=== PATIENT | male | born 1960 ===

== ENCOUNTER 2018-08-01 12:12 | Observation (INO) | payer MEDICAID ==
[2018-08-01 12:19] VITALS: BMI 18.7
--- NOTE | 2018-08-01 13:22 | ED PDOC ---
HPI: Hypertension/Hypotension Time Seen by Provider: 08/01/18 12:51 Chief Complaint (Nursing): High Blood Pressure Chief Complaint (Provider): High Blood Pressure History Per: Patient History/Exam Limitations: no limitations Onset/Duration Of Symptoms: Other (Today) Additional Complaint(s): 57 years old male presents for evaluation of high blood pressure. Patient was recently diagnosed with hypertension but did not start on medication yet. He states he had high blood pressure medication at home that he took because he had a feeling of chest tightness and right sided facial numbness for about 20 minutes. Blood pressure taken at home was 206/115. On arrival to ED, patient had blood pressure initially of 206/115 and currently 185/97. Patient reports symptoms started after he heard that his godfather was hospitalized for stroke. He denies weakness or numbness of extremity or slurred speech, PMD: Jose Manuel Past Medical History Reviewed: Historical Data, Nursing Documentation, Vital Signs Vital Signs: Last Vital Signs Temp 98.5 F 08/01/18 12:18 Pulse 98 H 08/01/18 12:31 Resp 16 08/01/18 12:31 BP 185/97 H 08/01/18 12:31 Pulse Ox 97 08/01/18 12:31 Primary Care Provider: CHELSIE TUTTLE - Medical History PMH: HTN - Surgical History Surgical History: No Surg Hx - Family History Family History: States: Unknown Family Hx - Social History Current smoker - smoking cessation education provided: No Alcohol: None Drugs: Denies - Home Medications Home Medications: Ambulatory Orders Medication Instructions Recorded Aspirin [Aspirin Chewable] 81 mg PO DAILY #30 chew 08/02/18 Atorvastatin [Lipitor] 10 mg PO DIN #30 tab 08/02/18 Ramipril [Altace] 5 mg PO DAILY #30 cap 08/02/18 amLODIPine [Norvasc] 5 mg PO Q12 #60 tab 08/02/18 - Allergies Allergies/Adverse Reactions: Allergies Allergy/AdvReac Type Severity Reaction Status Date / Time No Known Allergies Allergy Verified 08/01/18 12:30 Review of Systems ROS Statement: Except As Marked, All Systems Reviewed And Found Negative Cardiovascular: Positive for: Chest Pain Neurological: Positive for: Numbness (Right sided facial. No numbness to extremities). Negative for: Weakness (of extremities), Other (Slurred speech) Physical Exam - Reviewed Nursing Documentation Reviewed: Yes Vital Signs Reviewed: Yes - Physical Exam Appears: Positive for: Well, No Acute Distress Head Exam: Positive for: ATRAUMATIC, NORMOCEPHALIC Skin: Positive for: Normal Color, Warm, Dry Eye Exam: Positive for: Normal appearance, EOMI, PERRL ENT: Positive for: Normal ENT Inspection Neck: Positive for: Normal, Painless ROM, Supple Cardiovascular/Chest: Positive for: Regular Rate, Rhythm. Negative for: Murmur Respiratory: Positive for: Normal Breath Sounds. Negative for: Wheezing Gastrointestinal/Abdominal: Positive for: Normal Exam, Soft. Negative for: Tenderness Back: Positive for: Normal Inspection. Negative for: L CVA Tenderness, R CVA Tenderness Extremity: Positive for: Normal ROM. Negative for: Pedal Edema, Swelling Neurological/Psych: Positive for: Awake, Alert, Oriented (x3) - Laboratory Results Result Diagrams: 08/02/18 04:50 08/02/18 04:50 - ECG O2 Sat by Pulse Oximetry: 97 (RA) Pulse Ox Interpretation: Normal Medical Decision Making Medical Decision Making: Time: 1303 MDM: Workup for possible TIA, exacerbation of high blood pressure --Episode of chest tightness, cardiac workup --CT brain --Reevaluate patient 1410 CXR FINDINGS: LUNGS: No active pulmonary disease. Lung volumes lower limits of normal. PLEURA: No significant pleural effusion identified, no pneumothorax apparent. Minimal biapical pleural thickening suspect CARDIOVASCULAR: No aortic atherosclerotic calcification present. Normal cardiac size. No pulmonary vascular congestion. OSSEOUS STRUCTURES: Mild right acromioclavicular joint arthrosis. VISUALIZED UPPER ABDOMEN: Normal. OTHER FINDINGS: None. IMPRESSION: No pulmonary infiltrate. Minimal biapical pleural thickening. 1502 CT Head FINDINGS: HEMORRHAGE: No intracranial hemorrhage. BRAIN: Normal oropeza-white matter differentiation and density are appreciated throughout the cerebrum and cerebellum with the brainstem appearing unremarkable as well. There is no mass effect. There is no suspicious extra-axial fluid collection and the midline brain anatomy appears diffusely unremarkable. VENTRICLES: Unremarkable. No hydrocephalus. CALVARIUM: Unremarkable. PARANASAL SINUSES: Unremarkable as visualized. No significant inflammatory changes. MASTOID AIR CELLS: Unremarkable as visualized. No inflammatory changes. OTHER FINDINGS: None. IMPRESSION: Unremarkable unenhanced head CT. Pt admitted under Dr. Anguiano/Ken Barger for further cardiac workup and observation. Consult has been placed for cardiology. Scribe Attestation: Documented by Stephani Hernandez, acting as a scribe for Twila Elizondo MD. Provider Scribe Attestation: All medical record entries made by the Scribe were at my direction and personally dictated by me. I have reviewed the chart and agree that the record accurately reflects my personal performance of the history, physical exam, medical decision making, and the department course for this patient. I have also personally directed, reviewed, and agree with the discharge instructions and disposition. Disposition - Clinical Impression Clinical Impression: Hypertension - Disposition Disposition Time: 14:33 Condition: GOOD
--- NOTE | 2018-08-01 14:14 | RAD ---
Date of service: 08/01/2018 HISTORY: possible admission COMPARISON: No prior. TECHNIQUE: 1 view obtained. FINDINGS: LUNGS: No active pulmonary disease. Lung volumes lower limits of normal. PLEURA: No significant pleural effusion identified, no pneumothorax apparent. Minimal biapical pleural thickening suspect CARDIOVASCULAR: No aortic atherosclerotic calcification present. Normal cardiac size. No pulmonary vascular congestion. OSSEOUS STRUCTURES: Mild right acromioclavicular joint arthrosis. VISUALIZED UPPER ABDOMEN: Normal. OTHER FINDINGS: None. IMPRESSION: No pulmonary infiltrate. Minimal biapical pleural thickening.
[2018-08-01 14:24] LABS: BASO # 0.1 K/uL (0.0-0.2); BASO % 0.9 % (0.0-2.0); EOS # 0.1 K/uL (0.0-0.7); HEMOGLOBIN 14.2 g/dL (12.0-18.0); LYMPH # 2.4 K/uL (1.0-4.3); LYMPH % 30.9 % (20.0-40.0); MEAN CELL VOLUME 77.4 fl (80.0-94.0); MEAN CORPUSCULAR HEMOGLOBIN 24.7 pg (27.0-31.0); MEAN CORPUSCULAR HGB CONC 31.9 g/dL (33.0-37.0); MEAN PLATELET VOLUME 9.2 fl (7.2-11.7); MONO # 0.9 K/uL (0.0-0.8); MONO % 10.9 % (0.0-10.0); NEUT # 4.4 K/uL (1.8-7.0); NEUT % 56.3 % (50.0-75.0); NRBC % 0.2 % (0.0-0.0); RBC 5.78 Mil/uL (4.40-5.90); RED CELL DISTRIBUTION WIDTH 14.8 % (11.5-14.5); WHITE BLOOD COUNT 7.9 K/uL (4.8-10.8)
--- NOTE | 2018-08-01 15:06 | CT ---
Date of service: 08/01/2018 PROCEDURE: CT HEAD WITHOUT CONTRAST. HISTORY: right sided facial numbness COMPARISON: None available. TECHNIQUE: Axial computed tomography images were obtained through the head/brain without intravenous contrast. Radiation dose: Total exam DLP = 828.27 mGy-cm. This CT exam was performed using one or more of the following dose reduction techniques: Automated exposure control, adjustment of the mA and/or kV according to patient size, and/or use of iterative reconstruction technique. FINDINGS: HEMORRHAGE: No intracranial hemorrhage. BRAIN: Normal oropeza-white matter differentiation and density are appreciated throughout the cerebrum and cerebellum with the brainstem appearing unremarkable as well. There is no mass effect. There is no suspicious extra-axial fluid collection and the midline brain anatomy appears diffusely unremarkable. VENTRICLES: Unremarkable. No hydrocephalus. CALVARIUM: Unremarkable. PARANASAL SINUSES: Unremarkable as visualized. No significant inflammatory changes. MASTOID AIR CELLS: Unremarkable as visualized. No inflammatory changes. OTHER FINDINGS: None. IMPRESSION: Unremarkable unenhanced head CT.
[2018-08-01 15:25] LABS: PROTHROMBIN TIME 11.5 Seconds (9.8-13.1)
[2018-08-01 15:27] LABS: PARTIAL THROMBOPLASTIN TIME 33.5 Seconds (25.6-37.1)
--- NOTE | 2018-08-01 15:59 | CARD ---
APPROVED REPORT Date of service: 08/01/2018 EKG Measurement Heart [id number] <Conclusion> Normal sinus rhythm Normal ECG
[2018-08-01 16:45] LABS: BLOOD UREA NITROGEN 13 mg/dl (9-20); CALCIUM 9.3 mg/dL (8.4-10.2); GFR NON-AFRICAN AMERICAN > 60
--- NOTE | 2018-08-01 16:58 | CP.PCM.CON ---
Past Patient History - Past Social History Alcohol: None Drugs: Denies - CARDIAC Hx Hypertension: Yes - PSYCHIATRIC Hx Substance Use: No Meds Allergies/Adverse Reactions: Allergies Allergy/AdvReac Type Severity Reaction Status Date / Time No Known Allergies Allergy Verified 08/01/18 12:30 - Medications Medications: Current Medications Amlodipine Besylate (Norvasc) 5 mg PO Q12 [facility] Aspirin (Aspirin Chewable) 81 mg PO DAILY [facility] Ramipril (Altace) 5 mg PO DAILY [facility] Results - Vital Signs Recent Vital Signs: Last Vital Signs Temp 98.5 F 08/01/18 12:18 Pulse 92 H 08/01/18 15:47 Resp 16 08/01/18 12:31 BP 177/91 H 08/01/18 15:47 Pulse Ox 97 08/01/18 15:14 - Labs Result Diagrams: 08/01/18 14:13 08/01/18 16:23 Labs: Laboratory Results - last 24 hr 08/01/18 08/01/18 08/01/18 14:13 14:13 16:23 WBC 7.9 RBC 5.78 Hgb 14.2 Hct 44.7 MCV 77.4 L MCH 24.7 L MCHC 31.9 L RDW 14.8 H Plt Count 239 MPV 9.2 Neut % (Auto) 56.3 Lymph % (Auto) 30.9 [place] % (Auto) 10.9 H Eos % (Auto) 1.0 Baso % (Auto) 0.9 Neut # (Auto) 4.4 Lymph # (Auto) 2.4 [place] # (Auto) 0.9 H Eos # (Auto) 0.1 Baso # (Auto) 0.1 PT 11.5 INR 1.0 APTT 33.5 Sodium 139 Potassium 4.7 Chloride 102 Carbon Dioxide 27 Anion Gap 15 BUN 13 Creatinine 0.9 Est GFR ( Amer) > 60 Est GFR (Non-Af Amer) > 60 Random Glucose 102 Calcium 9.3 Troponin I < 0.0120 Assessment & Plan (1) Hypertensive urgency Status: Acute (2) Chest pain Status: Acute (3) Numbness and tingling of right side of face Status: Acute - Assessment and Plan (Free Text) Plan: RULE OUT NM CHECK ECHO LIPIDS MONITOR LYTES START NORVASC AND RAMIPRIL AND ASA. ALL OF ABOVE ENTERED. 45MIN TOTAL CARE TIME.
[2018-08-02 05:01] LABS: MEAN CELL VOLUME 76.9 fl (80.0-94.0); MEAN CORPUSCULAR HEMOGLOBIN 24.8 pg (27.0-31.0); MEAN CORPUSCULAR HGB CONC 32.2 g/dL (33.0-37.0); RBC 5.66 Mil/uL (4.40-5.90); RED CELL DISTRIBUTION WIDTH 14.5 % (11.5-14.5); WHITE BLOOD COUNT 8.4 K/uL (4.8-10.8)
[2018-08-02 05:16] LABS: ALB/GLOB RATIO 1.2 (1.0-2.1); ALT/SGPT 56 U/L (21-72); AST/SGOT 76 U/L (17-59); BLOOD UREA NITROGEN 13 mg/dl (9-20); CALCIUM 8.9 mg/dL (8.4-10.2); GFR NON-AFRICAN AMERICAN > 60; HDL CHOLESTEROL 31 MG/DL (30-70)
[2018-08-02 05:27] LABS: LDL CHOLESTEROL 108 mg/dL (0-129)
--- NOTE | 2018-08-02 09:27 | CP.PCM.HP ---
History of Present Illness - History of Present Illness History of Present Illness: pt admitted for tia/cp. states s/s started after hearing his aunt had cva in [place]. at present w/o complaints. bp controlled. no FAST s/s no weakness. for MRI/MRA case d/c w/ elisa anthony/scarlett. all bw, imaging consults appriciated Present on Admission - Present on Admission Any Indicators Present on Admission: No Review of Systems - Cardiovascular Cardiovascular: As Per HPI, Chest Pain - Neurological Neurological: As Per HPI, Sensory Deficit, Weakness Past Patient History - Past Social History Alcohol: None Drugs: Denies - CARDIAC Hx Hypertension: Yes - PSYCHIATRIC Hx Substance Use: No Meds Allergies/Adverse Reactions: Allergies Allergy/AdvReac Type Severity Reaction Status Date / Time No Known Allergies Allergy Verified 08/01/18 12:30 Physical Exam - Constitutional Appears: Well, Non-toxic, No Acute Distress - Head Exam Head Exam: ATRAUMATIC, NORMAL INSPECTION, NORMOCEPHALIC - Eye Exam Eye Exam: EOMI, Normal appearance, PERRL Pupil Exam: NORMAL ACCOMODATION, PERRL - ENT Exam ENT Exam: Mucous Membranes Moist, Normal Exam - Neck Exam Neck exam: Positive for: Normal Inspection - Respiratory Exam Respiratory Exam: Clear to Auscultation Bilateral, NORMAL BREATHING PATTERN - Cardiovascular Exam Cardiovascular Exam: REGULAR RHYTHM, RRR, +S1, +S2 - GI/Abdominal Exam GI & Abdominal Exam: Normal Bowel Sounds, Soft. absent: Tenderness - Extremities Exam Extremities exam: Positive for: full ROM, normal capillary refill, normal inspec tion, pedal pulses present - Back Exam Back exam: FULL ROM, NORMAL INSPECTION - Neurological Exam Neurological exam: Alert, CN II-XII Intact, Normal Gait, Oriented x3, Reflexes Normal - Psychiatric Exam Psychiatric exam: Normal Affect, Normal Mood - Skin Skin Exam: Dry, Intact, Normal Color, Warm Results - Vital Signs Recent Vital Signs: Last Vital Signs Temp 98.5 F 08/01/18 12:18 Pulse 64 08/02/18 05:16 Resp 20 08/02/18 05:16 BP 115/72 08/02/18 05:16 Pulse Ox 95 08/02/18 05:16 - Labs Result Diagrams: 08/02/18 04:50 08/02/18 04:50 Labs: Laboratory Results - last 24 hr 05/11/1208/01/18 08/01/18 14:13 14:13 16:23 WBC 7.9 RBC 5.78 Hgb 14.2 Hct 44.7 MCV 77.4 L MCH 24.7 L MCHC 31.9 L RDW 14.8 H Plt Count 239 MPV 9.2 Neut % (Auto) 56.3 Lymph % (Auto) 30.9 [place] % (Auto) 10.9 H Eos % (Auto) 1.0 Baso % (Auto) 0.9 Neut # (Auto) 4.4 Lymph # (Auto) 2.4 [place] # (Auto) 0.9 H Eos # (Auto) 0.1 Baso # (Auto) 0.1 PT 11.5 INR 1.0 APTT 33.5 Sodium 139 Potassium 4.7 Chloride 102 Carbon Dioxide 27 Anion Gap 15 BUN 13 Creatinine 0.9 Est GFR ( Amer) > 60 Est GFR (Non-Af Amer) > 60 Random Glucose 102 Calcium 9.3 Magnesium Total Bilirubin AST ALT Alkaline Phosphatase Troponin I < 0.0120 Total Protein Albumin Globulin Albumin/Globulin Ratio Triglycerides Cholesterol LDL Cholesterol Direct HDL Cholesterol 08/02/18 08/02/18 04:50 04:50 WBC 8.4 RBC 5.66 Hgb 14.0 Hct 43.5 MCV 76.9 L MCH 24.8 L MCHC 32.2 L RDW 14.5 Plt Count 215 MPV Neut % (Auto) Lymph % (Auto) [place] % (Auto) Eos % (Auto) Baso % (Auto) Neut # (Auto) Lymph # (Auto) [place] # (Auto) Eos # (Auto) Baso # (Auto) PT INR APTT Sodium 137 Potassium 4.2 Chloride 99 Carbon Dioxide 29 Anion Gap 13 BUN 13 Creatinine 0.9 Est GFR ( Amer) > 60 Est GFR (Non-Af Amer) > 60 Random Glucose 105 Calcium 8.9 Magnesium 1.8 Total Bilirubin 0.8 AST 76 H ALT 56 Alkaline Phosphatase 84 Troponin I Total Protein 7.3 Albumin 4.0 Globulin 3.3 Albumin/Globulin Ratio 1.2 Triglycerides 112 Cholesterol 161 LDL Cholesterol Direct 108 HDL Cholesterol 31 Assessment & Plan (1) DVT prophylaxis Assessment and Plan: scd nad ae hose ambulation Status: Acute (2) Chest pain Assessment and Plan: resolved, ?? stress rxn cardio echo Status: Acute (3) Hypertensive urgency Assessment and Plan: normlaized cont bp meds cardio Status: Acute (4) Numbness and tingling of right side of face Assessment and Plan: ?? r/t stress rxn, elev bp no complaints at present neuro flp normal mri/mra completed pending report Status: Acute Decision To Admit - Pt Status Changed To: Hospital Disposition Of: Observation - . Bed Request Type: Telemetry Admitting Physician: Herbert Anguiano
--- NOTE | 2018-08-02 10:21 | MRI ---
Date of service: 08/02/2018 PROCEDURE: MRI BRAIN WITHOUT CONTRAST HISTORY: tia COMPARISON: None available. TECHNIQUE: Multiplanar, multisequence MR images of the brain were obtained without intravenous contrast enhancement. FINDINGS: HEMORRHAGE: None DWI: No evidence of an acute or early subacute infarction. BRAIN PARENCHYMA: Minimal bifrontal and biparietal subcortical white matter changes are appreciated in the cerebrum, compatible with limited chronic microangiopathy. Remaining white matter is unremarkable including the corpus callosum. No mass effect. No suspicious extra-axial collection identified. Posterior fossa contents are remarkable for limited herniation of the tonsils approximately 6.5 mm below the foramen magnum compatible with low-lying tonsils. VENTRICLES: Unremarkable. No hydrocephalus. CRANIUM: Unremarkable. ORBITS: Grossly unremarkable. PARANASAL SINUSES/MASTOIDS: Clear VASCULAR SYSTEM: Skull base flow voids intact. OTHER FINDINGS: None. IMPRESSION: Limited age-related neuro degenerative changes are identified involving the bilateral frontal and parietal lobes subcortical white matter with remainder of the examination unremarkable. No evidence of acute or subacute brain infarction. Low-lying cerebellar tonsils.
--- NOTE | 2018-08-02 10:26 | MRI ---
Date of service: 08/02/2018 PROCEDURE: Magnetic Resonance Angiography Brain HISTORY: tia COMPARISON: None available. TECHNIQUE: 3D time of flight MR angiography of the intracranial arteries was performed. Rotating maximum intensity projection images were generated. FINDINGS: INTERNAL CAROTID ARTERIES: Unremarkable. The skull base, petrous, cavernous and supraclinoid segments are bilaterally widely patient. ANTERIOR CEREBRAL ARTERIES: Unremarkable. A1 and A2 segments are widely patent. Smaller distal branches unremarkable, as visualized. MIDDLE CEREBRAL ARTERIES: Unremarkable. M1 and M2 segments are widely patent. Perisylvian branches grossly symmetric. POSTERIOR CIRCULATION: Basilar Artery: Unremarkable. Distal Vertebral Arteries: Codominant vertebrobasilar circulation. 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 Posterior Inferior Cerebellar Arteries: Unremarkable. ANEURYSM/ VASCULAR MALFORMATIONS: None. OTHER FINDINGS: None. 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 Intracranial MR angiography is otherwise unremarkable appearing.
--- NOTE | 2018-08-02 10:59 | CARD ---
APPROVED REPORT Date of service: 08/02/2018 EXAM: Two-dimensional and M-mode echocardiogram with Doppler and color Doppler. Other Information Quality : GoodRhythm : Tachycardia INDICATION Hypertension/HCVD 2D DIMENSIONS IVSd1.43 (0.7-1.1cm)LVDd3.30 (3.9-5.9cm) LVOT Diameter2.66 (1.8-2.4cm)PWd1.58 (0.7-1.1cm) IVSs1.65 (0.8-1.2cm)LVDs1.96 (2.5-4.0cm) FS (%) 40.6 %PWs1.48 (0.8-1.2cm) M-Mode DIMENSIONS Left Atrium (MM)3.78 (2.5-4.0cm)IVSd1.16 (0.7-1.1cm) Aortic Root3.17 (2.2-3.7cm)LVDd4.96 (4.0-5.6cm) Aortic Cusp Exc.2.26 (1.5-2.0cm)PWd1.24 (0.7-1.1cm) IVSs1.85 cmFS (%) 66 % LVDs1.68 (2.0-3.8cm)PWs2.01 cm Aortic Valve AoV Peak Tydzvqlh691.3cm/sAoV VTI19.4cmAO Peak GR.8mmHg LVOT Peak Utzzsfxd124.6cm/sLVOT VTI20.62cmAO Mean GR.4mmHg PAUL (VMAX)2.54gd0WVS (VTI)2.57cm2 Mitral Valve MV E Cnogiopq28.3cm/sMV DECEL [id number] A Augpxqzw47.5cm/s MV YBS92fjF/A ratio0.9MVA (PHT)3.08cm2 TDI Lateral E' Peak V6.44cm/sMedial E' Peak V7.01cm/sE/Lateral E'11.7 E/Medial E'10.7 LEFT VENTRICLE The left ventricle is normal size. There is mild concentric left ventricular hypertrophy. The left ventricular systolic function is normal. The estimated ejection fraction is 60-65% No regional wall motion abnormalities noted.. Transmitral Doppler flow pattern is Grade I-abnormal relaxation pattern. No left ventricle thrombus noted on this study. There is no ventricular septal defect visualized. There is no left ventricular aneurysm. There is no mass noted in the left ventricle. RIGHT VENTRICLE The right ventricle is normal size. There is normal right ventricular wall thickness. The right ventricular systolic function is normal. ATRIA The left atrium size is normal. The right atrium size is normal. The interatrial septum is intact with no evidence for an atrial septal defect. AORTIC VALVE The aortic valve is normal in structure. No aortic regurgitation is present. There is no aortic valvular stenosis. There is no aortic valvular vegetation. MITRAL VALVE The mitral valve is normal in structure. There is no evidence of mitral valve prolapse. There is no mitral valve stenosis. There is no mitral valve regurgitation noted. TRICUSPID VALVE The tricuspid valve is normal in structure. There is no tricuspid valve regurgitation noted. There is no tricuspid valve prolapse or vegetation. There is no tricuspid valve stenosis. PULMONIC VALVE The pulmonary valve is normal in structure. There is no pulmonic valvular regurgitation. There is no pulmonic valvular stenosis. GREAT VESSELS The aortic root is normal in size. The ascending aorta is normal in size. The pulmonary artery is normal. The IVC is not well visualized. PERICARDIAL EFFUSION There is no pericardial effusion. There is no pleural effusion. <Conclusion> There is mild concentric left ventricular hypertrophy. The estimated ejection fraction is 60-65% Transmitral Doppler flow pattern is Grade I-abnormal relaxation pattern. The left atrium size is normal. There is no tricuspid valve regurgitation noted.
--- NOTE | 2018-08-02 11:55 | CP.PCM.CON ---
History of Present Illness - History of Present Illness History of Present Illness: Neurology Consultation Consultation Requested by Dr. Elizondo Mr. Uri Bland is a 57 y/o male with a PMHx of HTN. He is admitted to [facility] for HTN and facial numbness. Pt states that he was home yesterday when he received news from his family in the [place] that a close family member just suffered a stroke. He states that he felt emotionally upset and shortly after receiving this news he felt the right side of his face numb. He states that this lasted about 1 minute then resolved. He called his , who recommended he check his BP with his at-home BP monitor, and the SBP reading was 197. advised him to come to the ED for evaluation. Pt states that during this time he did not lose consciousness, denied h/a, dizziness, visual changes, difficulty speaking, chest pain, palpitations, sob, cough, abd pain, n/v/d, dysuria, weakness/paresthesias to arms or legs. CT Head and the Brain MRI done have been reviewed; acute and subacute stroke have been ruled out. MRA also reviewed. He currently feels better and denies any symptoms now. ROS is unremarkable at this time. Review of Systems - Constitutional Constitutional: As Per HPI - EENT Eyes: As Per HPI Ears: As Per HPI Nose/Mouth/Throat: As Per HPI - Cardiovascular Cardiovascular: As Per HPI - Respiratory Respiratory: As Per HPI - Gastrointestinal Gastrointestinal: As Per HPI - Genitourinary Genitourinary: As Per HPI - Reproductive: Male Reproductive:Male: As Per HPI - Musculoskeletal Musculoskeletal: As Per HPI - Integumentary Integumentary: As Per HPI - Neurological Neurological: As Per HPI - Psychiatric Psychiatric: As Per HPI - Endocrine Endocrine: As Per HPI - Hematologic/Lymphatic Hematologic: As Per HPI Past Patient History - Infectious Disease Hx of Infectious Diseases: None - Tetanus Immunizations Tetanus Immunization: Unknown - Past Medical History & Family History Past Medical History?: Yes - Past Social History Smoking Status: Never Smoked Chewing Tobacco Use: No Cigar Use: No Occupation: unemployed Alcohol: None (quit 2 months ago) Drugs: Denies Home Situation {Lives}: With Family Domestic Violence: Negative - CARDIAC Hx Cardiac Disorders: Yes Hx Hypertension: Yes - PULMONARY Hx Respiratory Disorders: No - NEUROLOGICAL Hx Neurological Disorder: No - HEENT Hx HEENT Problems: No - RENAL Hx Chronic Kidney Disease: No - ENDOCRINE/METABOLIC Hx Endocrine Disorders: No - HEMATOLOGICAL/ONCOLOGICAL Hx Blood Disorders: No - INTEGUMENTARY Hx Dermatological Problems: No - MUSCULOSKELETAL/RHEUMATOLOGICAL Hx Musculoskeletal Disorders: No - GASTROINTESTINAL Hx Gastrointestinal Disorders: No - GENITOURINARY/GYNECOLOGICAL Hx Genitourinary Disorders: No - PSYCHIATRIC Hx Psychophysiologic Disorder: No Hx Substance Use: No - SURGICAL HISTORY Hx Surgeries: No - ANESTHESIA Hx Anesthesia: No Meds Home Medications: Home Medication List Medication Instructions Recorded Confirmed Type Aspirin [Aspirin Chewable] 81 mg PO DAILY #30 chew 08/02/18 Rx Atorvastatin [Lipitor] 10 mg PO DIN #30 tab 08/02/18 Rx Ramipril [Altace] 5 mg PO DAILY #30 cap 08/02/18 Rx amLODIPine [Norvasc] 5 mg PO Q12 #60 tab 08/02/18 Rx Allergies/Adverse Reactions: Allergies Allergy/AdvReac Type Severity Reaction Status Date / Time No Known Allergies Allergy Verified 08/01/18 12:30 - Medications Medications: Current Medications Amlodipine Besylate (Norvasc) 5 mg PO Q12 [facility] Last Admin: 08/02/18 09:54 Dose: 5 mg Aspirin (Aspirin Chewable) 81 mg PO DAILY [facility] Last Admin: 08/02/18 09:55 Dose: 81 mg Ramipril (Altace) 5 mg PO DAILY [facility] Last Admin: 08/02/18 09:50 Dose: 5 mg Physical Exam - Constitutional Appears: Well, Non-toxic, No Acute Distress - Head Exam Head Exam: ATRAUMATIC, NORMAL INSPECTION, NORMOCEPHALIC - Eye Exam Eye Exam: EOMI, Normal appearance, PERRL Pupil Exam: NORMAL ACCOMODATION, PERRL - ENT Exam ENT Exam: Mucous Membranes Moist, Normal Exam - Neck Exam Neck exam: Positive for: Full Rom, Normal Inspection - Respiratory Exam Respiratory Exam: NORMAL BREATHING PATTERN. absent: Respiratory Distress - GI/Abdominal Exam GI & Abdominal Exam: Soft. absent: Distended, Tenderness - Extremities Exam Extremities exam: Positive for: full ROM, normal inspection. Negative for: calf tenderness, pedal edema - Back Exam Back exam: FULL ROM, NORMAL INSPECTION - Neurological Exam Neurological exam: Alert, CN II-XII Intact, Normal Gait, Oriented x3, Reflexes Normal - Psychiatric Exam Psychiatric exam: Normal Affect, Normal Mood - Skin Skin Exam: Dry, Intact, Normal Color Results - Vital Signs Recent Vital Signs: Last Vital Signs Temp 98.5 F 08/01/18 12:18 Pulse 78 08/02/18 09:54 Resp 20 08/02/18 05:16 BP 128/70 08/02/18 09:54 Pulse Ox 95 08/02/18 05:16 - Labs Result Diagrams: 08/02/18 04:50 08/02/18 04:50 Labs: Laboratory Results - last 24 hr 08/01/18 08/01/18 08/01/18 14:13 14:13 16:23 WBC 7.9 RBC 5.78 Hgb 14.2 Hct 44.7 MCV 77.4 L MCH 24.7 L MCHC 31.9 L RDW 14.8 H Plt Count 239 MPV 9.2 Neut % (Auto) 56.3 Lymph % (Auto) 30.9 [place] % (Auto) 10.9 H Eos % (Auto) 1.0 Baso % (Auto) 0.9 Neut # (Auto) 4.4 Lymph # (Auto) 2.4 [place] # (Auto) 0.9 H Eos # (Auto) 0.1 Baso # (Auto) 0.1 PT 11.5 INR 1.0 APTT 33.5 Sodium 139 Potassium 4.7 Chloride 102 Carbon Dioxide 27 Anion Gap 15 BUN 13 Creatinine 0.9 Est GFR ( Amer) > 60 Est GFR (Non-Af Amer) > 60 Random Glucose 102 Calcium 9.3 Magnesium Total Bilirubin AST ALT Alkaline Phosphatase Troponin I < 0.0120 Total Protein Albumin Globulin Albumin/Globulin Ratio Triglycerides Cholesterol LDL Cholesterol Direct HDL Cholesterol 08/02/18 08/02/18 04:50 04:50 WBC 8.4 RBC 5.66 Hgb 14.0 Hct 43.5 MCV 76.9 L MCH 24.8 L MCHC 32.2 L RDW 14.5 Plt Count 215 MPV Neut % (Auto) Lymph % (Auto) [place] % (Auto) Eos % (Auto) Baso % (Auto) Neut # (Auto) Lymph # (Auto) [place] # (Auto) Eos # (Auto) Baso # (Auto) PT INR APTT Sodium 137 Potassium 4.2 Chloride 99 Carbon Dioxide 29 Anion Gap 13 BUN 13 Creatinine 0.9 Est GFR ( Amer) > 60 Est GFR (Non-Af Amer) > 60 Random Glucose 105 Calcium 8.9 Magnesium 1.8 Total Bilirubin 0.8 AST 76 H ALT 56 Alkaline Phosphatase 84 Troponin I Total Protein 7.3 Albumin 4.0 Globulin 3.3 Albumin/Globulin Ratio 1.2 Triglycerides 112 Cholesterol 161 LDL Cholesterol Direct 108 HDL Cholesterol 31 Assessment & Plan (1) Numbness and tingling of right side of face Assessment and Plan: All imaging reviewed with Dr. Booker. The numbness to the right side of the face that the pt experienced was most likely 2/2 stress/anxiety reaction. MRI shows no acute or subacute stroke. I discussed all findings with the pt. He is neurologically cleared for d/c. He should f/u with his PMD within 1 week. Continue to manage risk factors such as HTN and diet. I discussed these concerns with the pt and his and they verbalize understanding. Please provide him with neuro office information so that he can contact us for any concerns or questions. Plan discussed with Dr. Barger as well. Please reconsult prn. Thank you for this consultation. Erica Romero, TRICIA, CLIENT TECHNICAL SPECIALIST d/w Dr. Booker Status: Acute - Date & Time Date: 08/02/18 Time: 15:02 NIHSS Stroke Scale - Date/Time Evaluation Performed Date Performed: 08/02/18 Time Performed: 14:59 When Was NIHSS Performed: Re-evaluation - How Severe is the Stroke Level of Consciousness: 0=Alert LOC to Questions: 0=Both comments correct LOC to commands: 0=Obeys both correctly Best Gaze: 0=Normal Visual: 0=No visual loss Facial: 0=Normal Motor Arm - Left: 0=No drift Motor Arm - Right: 0=No drift Motor Leg - Left: 0=No drift Motor Leg - Right: 0=No drift Limb Ataxia: 0=Absent Sensory: 0=Normal Best Language: 0=No aphasia Dysarthia: 0=Normal articulation Extinction & Inattention (Neglect): 0=Normal, no object Score: 0
--- NOTE | 2018-08-02 14:17 | CP.PCM.DIS ---
Provider - Provider Date of Admission: 08/01/18 14:33 Attending physician: Herbert Anguiano MD Consults: 08/01/18 14:32 Neurology Consult Stat Comment: Consulting Provider: Sarkis Booker Consulting Physician: Sarkis Booker Reason for Consult: right sided facial weakness 08/01/18 14:48 Cardiology Consult Stat Comment: Consulting Provider: Kamron Mendoza Consulting Physician: Kamron Mendoza Reason for Consult: CP with HTN Time Spent in preparation of Discharge (in minutes): 15 Diagnosis - Discharge Diagnosis (1) DVT prophylaxis Status: Acute (2) Chest pain Status: Acute (3) Hypertensive urgency Status: Acute (4) Numbness and tingling of right side of face Status: Acute Hospital Course - Lab Results Lab Results: Most Recent Lab Values WBC 8.4 K/uL (4.8-10.8) 08/02/18 04:50 RBC 5.66 Mil/uL (4.40-5.90) 08/02/18 04:50 Hgb 14.0 g/dL (12.0-18.0) 08/02/18 04:50 Hct 43.5 % (35.0-51.0) 08/02/18 04:50 MCV 76.9 fl (80.0-94.0) L 08/02/18 04:50 MCH 24.8 pg (27.0-31.0) L 08/02/18 04:50 MCHC 32.2 g/dL (33.0-37.0) L 08/02/18 04:50 RDW 14.5 % (11.5-14.5) 08/02/18 04:50 Plt Count 215 K/uL (130-400) 08/02/18 04:50 MPV 9.2 fl (7.2-11.7) 08/01/18 14:13 Neut % (Auto) 56.3 % (50.0-75.0) 08/01/18 14:13 Lymph % (Auto) 30.9 % (20.0-40.0) 08/01/18 14:13 [place] % (Auto) 10.9 % (0.0-10.0) H 08/01/18 14:13 Eos % (Auto) 1.0 % (0.0-4.0) 08/01/18 14:13 Baso % (Auto) 0.9 % (0.0-2.0) 08/01/18 14:13 Neut # (Auto) 4.4 K/uL (1.8-7.0) 08/01/18 14:13 Lymph # (Auto) 2.4 K/uL (1.0-4.3) 08/01/18 14:13 [place] # (Auto) 0.9 K/uL (0.0-0.8) H 08/01/18 14:13 Eos # (Auto) 0.1 K/uL (0.0-0.7) 08/01/18 14:13 Baso # (Auto) 0.1 K/uL (0.0-0.2) 08/01/18 14:13 PT 11.5 Seconds (9.8-13.1) 08/01/18 14:13 INR 1.0 08/01/18 14:13 APTT 33.5 Seconds (25.6-37.1) 08/01/18 14:13 Sodium 137 mmol/l (132-148) 08/02/18 04:50 Potassium 4.2 MMOL/L (3.6-5.0) 08/02/18 04:50 Chloride 99 mmol/L (98-107) 08/02/18 04:50 Carbon Dioxide 29 mmol/L (22-30) 08/02/18 04:50 Anion Gap 13 (10-20) 08/02/18 04:50 BUN 13 mg/dl (9-20) 08/02/18 04:50 Creatinine 0.9 mg/dl (0.8-1.5) 08/02/18 04:50 Est GFR ( Amer) > 60 08/02/18 04:50 Est GFR (Non-Af Amer) > 60 08/02/18 04:50 Random Glucose 105 mg/dL (75-110) 08/02/18 04:50 Calcium 8.9 mg/dL (8.4-10.2) 08/02/18 04:50 Magnesium 1.8 MG/DL (1.6-2.3) 08/02/18 04:50 Total Bilirubin 0.8 mg/dl (0.2-1.3) 08/02/18 04:50 AST 76 U/L (17-59) H 08/02/18 04:50 ALT 56 U/L (21-72) 08/02/18 04:50 Alkaline Phosphatase 84 U/L (38-126) 08/02/18 04:50 Troponin I < 0.0120 ng/mL (0.00-0.120) 08/01/18 16:23 Total Protein 7.3 G/DL (6.3-8.2) 08/02/18 04:50 Albumin 4.0 g/dL (3.5-5.0) 08/02/18 04:50 Globulin 3.3 gm/dL (2.2-3.9) 08/02/18 04:50 Albumin/Globulin Ratio 1.2 (1.0-2.1) 08/02/18 04:50 Triglycerides 112 mg/DL (0-149) 08/02/18 04:50 Cholesterol 161 mg/dL (0-199) 08/02/18 04:50 LDL Cholesterol Direct 108 mg/dL (0-129) 08/02/18 04:50 HDL Cholesterol 31 MG/DL (30-70) 08/02/18 04:50 - Hospital Course Hospital Course: pt seem and cleared by neuro and cardi ofor dc all imaging reviewed. Discharge Exam - Head Exam Head Exam: ATRAUMATIC, NORMAL INSPECTION, NORMOCEPHALIC Discharge Plan - Discharge Medications Prescriptions: amLODIPine [Norvasc] 5 mg PO Q12 #60 tab Aspirin [Aspirin Chewable] 81 mg PO DAILY #30 chew Atorvastatin [Lipitor] 10 mg PO DIN #30 tab Ramipril [Altace] 5 mg PO DAILY #30 cap - Follow Up Plan Condition: GOOD Disposition: HOME/ ROUTINE Additional Instructions: final dx-tia cleared by cardio,neuro dc on htn therapy and statin, asa rted prn, meds pe rmed rec
--- NOTE | 2018-08-02 15:08 | CP.PCM.PN ---
Subjective - Date & Time of Evaluation Date of Evaluation: 08/02/18 Time of Evaluation: 15:06 - Subjective Subjective: NO FURTHER COMPLAINTS. BP AND HR STABLE. Objective - Vital Signs/Intake and Output Vital Signs (last 24 hours): Temp Pulse Resp BP Pulse Ox 98.6 F 89 18 139/63 99 08/02/18 12:09 08/02/18 12:09 08/02/18 12:09 08/02/18 12:09 08/02/18 12:09 - Medications Medications: Current Medications Amlodipine Besylate (Norvasc) 5 mg PO Q12 [facility] Last Admin: 08/02/18 09:54 Dose: 5 mg Aspirin (Aspirin Chewable) 81 mg PO DAILY [facility] Last Admin: 08/02/18 09:55 Dose: 81 mg Ramipril (Altace) 5 mg PO DAILY [facility] Last Admin: 08/02/18 09:50 Dose: 5 mg - Labs Labs: 08/02/18 04:50 08/02/18 04:50 PT 11.5 Seconds (9.8-13.1) 08/01/18 14:13 INR 1.0 08/01/18 14:13 APTT 33.5 Seconds (25.6-37.1) 08/01/18 14:13 Assessment and Plan (1) Hypertensive urgency Status: Acute (2) Chest pain Status: Acute (3) Numbness and tingling of right side of face Status: Acute - Assessment and Plan (Free Text) Plan: CONT MEDS PRESCRIBED FOR HTN. ASA 81MG DAILY STABLE FOR D/C STRESS TEST OUTPT. 45 MIN
[2018-08-02 15:59] VITALS: BP 125/89; PULSE 74; RESP 17; TEMP 99
[2018-08-03 12:57] VITALS: O2SAT 97
== END 2018-08-02 16:05 | disposition home or self-care (01) ==
LOC: H.ER 12:12 → H.ERHOLD 14:33
PROVIDERS: ADMIT Family Medicine; ATTEND Family Medicine
DX: G45.9 Transient cerebral ischemic attack, unspecified (principal); I16.0 Hypertensive urgency
CPT/HCPCS: 70450; 70544; 70551; 71045; 80048; 80053; 80061; 83036; 83735; 84484; 85025; 85027; 85610; 85730; 93005; 93306; 96374; 99285; G0378; J0360